=== PATIENT | male | born 2005 | race Caucasian/White ===

== ENCOUNTER 2025-03-30 04:19 | Emergency (ER) | payer BC ==
[2025-03-30] MEDS ORDERED: Bacitracin 1 PK ONE (05:04)
[2025-03-30] MEDS ORDERED: Acetaminophen 500 MG TAB ONE (05:04)
== END 2025-03-30 06:05 | disposition home or self-care (01) ==
LOC: CSHERS 04:19
DX: S01.111A Laceration without foreign body of right eyelid and periocular area, initial encounter (principal); W06.XXXA Fall from bed, initial encounter; W22.8XXA Striking against or struck by other objects, initial encounter
CPT/HCPCS: 12011; 70450; 70486